=== PATIENT | male | born 1970 | race Caucasian/White ===

== ENCOUNTER → 2016-11-22 | Outpatient (CLI) | payer MEDICAID ==
[2016-11-22] VITALS (7 sets, daily range): BP systolic 106–136; BP diastolic 65–90; PULSE 63–87
[~2016-11-22] VITALS: Ht 175.4 cm; Wt 86.0 kg
[~2016-11-22] MED LIST: AMBIEN 10MG10 MG PO; ASPIRIN 32325 MG/TAB PO; ASPIRIN E.C. 8181 MG PO; CARAFATE 1GM1 G PO; DAILY MULTIPLE1 T18 PO; DESYREL 100MG100 MG PO; EFFEXOR100 MG PO; GLUCOPHAGE500 MG/TAB PO; IMDUR 30MG30 MG/TAB PO; IMDUR 60MG60 MG/TAB PO; INDERAL 20MG20 MG PO; ISOSORBIDE MON120 MG PO; LANTUS100 U/ML SQ; LEXAPRO 10MG10 MG PO; LIPITOR 40MG TA40 MG PO; LIPITOR 80MG80 MG PO; LOPRESSOR 225 MG/TAB PO; LOPRESSOR 550 MG/TAB PO; LORTAB 5/500 501 TAB PO; MYSOLINE 5050 MG/TAB PO; NICOTINIC ACID PO; NICOTROL I420 MG/42 IH; NITROSTAT0.4 MG/TAB SL; NORCO 325 MG-51 TAB PO; ONE DAILY MULTI1 TA1 PO; PEPCID 20MG TAB20 MG PO; PLAVIX 75MG TAB75 MG PO; PRILOSEC 20MG20 MG PO; PRINIVIL10 MG PO; PROAIR HFA0.09 MG/AC IH; RANEXA 500MG T500 MG PO; RESTORIL 1515 MG/CAP PO; TOPROL XL 25MG25 MG PO; XANAX 0.5MG0.5 MG PO; ZANTAC 150MG T150 MG PO; ZESTRIL 10MG10 MG PO; ZOFRAN 4MG T4 MG/TAB PO
== END ==
LOC: COL.CARD 10:13
DX: I20.8 Other forms of angina pectoris (principal); I25.2 Old myocardial infarction
CPT/HCPCS: A9502; J2785